=== PATIENT | female | born 1975 | race Caucasian/White ===

== ENCOUNTER → 2022-05-21 07:09 | Outpatient (CLI) | payer OTHER, SELFPAY ==
--- NOTE | ~2022-05-21 | MR_ITS ---
EXAMINATION: MR knee RT wo con DATE: 05/21/2022 07:44 INDICATION: Acute onset right knee pain 2 weeks after sustaining a jumping injury TECHNIQUE: Magnetic resonance imaging (MRI) of the right knee was performed without intravenous contr ast. Sequences included coronal PD-weighted FSE, coronal PD-weighted FS FSE, sagittal T2-weighted FS E, sagittal PD-weighted FS FSE and axial PD weighted fat saturated FSE. COMPARISON: None. FINDINGS: Medial compartment: Medial meniscus is normal. Articular cartilage is normal. Lateral compartment: Lateral meniscus is normal. Articular cartilage is normal. Patellofemoral compartment: Mild partial-thickness chondral fissuring without degenerative subchondral changes at the medial flores llar facet and apical ridge. Ligaments and tendons: Posterior cruciate ligament is normal. There is a complete tear of the anterior cruciate ligament.. T he medial collateral ligament and fibular collateral ligament complex are normal. The extensor mechan ism is normal. The visualized medial and lateral hamstring tendons as well as the iliotibial band are normal. Fluid: Physiologic amount of fluid in the joint space. No loose osteochondral bodies identified. Osseous/other: There is marrow edema surrounding small low signal intensity nondisplaced fracture lines underlying t he posterior rim of the medial and lateral tibial plateau. Marrow edema without discrete fracture christen e consistent with bone contusion at the lateral sulcus and posterior margin of the medial tibial plat eau. Otherwise normal bone marrow signal no pathologic marrow replacing process. IMPRESSION: 1. Anterior tibial subluxation injury pattern with complete tear of the anterior cruciate ligament, n ondisplaced impaction fractures along the posterior rim of the medial lateral tibial plateau and bone contusion at the lateral sulcus of the lateral femoral condyle. Reviewed, dictated and finalized at location A. IMPRESSION: 1. Anterior tibial subluxation injury pattern with complete tear of the anterio r cruciate ligament, nondisplaced impaction fractures along the posterior rim o f the medial lateral tibial plateau and bone contusion at the lateral sulcus of the lateral femoral condyle.
== END ==
DX: S82.144A Nondisplaced bicondylar fracture of right tibia, initial encounter for closed fracture (principal)
CPT/HCPCS: 73721